=== PATIENT | female | born 1975 | race Two or more races ===

== ENCOUNTER 2021-11-24 12:00 | Outpatient (CLI) | payer OTHER | END 2021-11-24 12:05 | disposition home or self-care (01) | LOC: PPH VACUNA 12:00 | PROVIDERS: ATTEND Emergency Medicine Pediatric Emergency Medicine | DX: Z23 Encounter for immunization (principal) ==

== ENCOUNTER 2022-02-21 06:30 | Emergency (ER) | payer OTHER ==
[~2022-02-21] VITALS: Ht 154.9 cm; Wt 57.2 kg
== END 2022-02-21 11:11 | disposition home or self-care (01) ==
LOC: ER 06:30
DX: S70.01XA Contusion of right hip, initial encounter (principal); S40.012A Contusion of left shoulder, initial encounter; W18.30XA Fall on same level, unspecified, initial encounter; Y93.9 Activity, unspecified; Y92.9 Unspecified place or not applicable; Y99.9 Unspecified external cause status

== ENCOUNTER 2022-09-27 12:38 | Outpatient (CLI) | payer OTHER | END 2022-09-27 12:39 | disposition home or self-care (01) | LOC: LAB 12:38 | DX: Z02.1 Encounter for pre-employment examination (principal) ==

== ENCOUNTER 2022-10-27 16:17 | Outpatient (CLI) | payer OTHER | END 2022-10-27 16:21 | disposition home or self-care (01) | LOC: LAB 16:17 | DX: U07.1 COVID-19 (principal) ==

== ENCOUNTER 2022-10-28 23:55 | Emergency (ER) | payer OTHER ==
[~2022-10-28] VITALS: Ht 154.9 cm; Wt 57.6 kg
[2022-10-29] MEDS ORDERED: MOLNUPIRAVIR (200 MG PO (04:15)
[2022-10-29] MEDS ORDERED: MUCINEX DM ER1 EAC1 PO (04:15)
[2022-10-29] MEDS ORDERED: PROAIR RESPICL90 MCG IH (04:15)
[2022-10-29] MEDS ORDERED: ACETAMINOPHEN500 M2 PO (04:15)
[2022-10-29] MEDS ORDERED: FLONASE16 GM NASAL (04:15)
== END 2022-10-29 04:33 | disposition home or self-care (01) ==
LOC: ER 23:55
DX: U07.1 COVID-19 (principal); J06.9 Acute upper respiratory infection, unspecified

== ENCOUNTER 2022-12-02 01:50 | Outpatient (CLI) | payer OTHER ==
[~2022-12-02 01:50] MED LIST: ACETAMINOPHEN500 M2 PO; FLONASE16 GM NASAL; MOLNUPIRAVIR (200 MG PO; MUCINEX DM ER1 EAC1 PO; PROAIR RESPICL90 MCG IH
== END 2022-12-02 02:00 | disposition home or self-care (01) ==
LOC: PPH VACUNA 01:50
PROVIDERS: ATTEND Emergency Medicine Pediatric Emergency Medicine
DX: Z23 Encounter for immunization (principal)
CPT/HCPCS: 90686; G0008

== ENCOUNTER → 2022-12-31 07:43 | Outpatient (CLI) | payer OTHER ==
[2022-12-31 09:13] LABS: PH,URINE 7.5 (5.0-8.0); URINE APPEARANCE Clear; URINE BILIRRUBIN Negative (NEGATIVE); URINE BLOOD Negative; URINE COLOR Yellow; URINE GLUCOSE Negative (NEGATIVE); URINE LEUKOCYTE Negative; URINE NITRATE Negative; URINE PROTEIN Negative (NEGATIVE); URINE UROBILINOGEN 0.2 E.U./dl
[2022-12-31 09:17] LABS: URINE BACTERIA 249.3 uL (0.0-1933); URINE EPITHELIAL CELLS 12.1 uL (0.0-38.8); URINE RBC 30.1 uL (0.0-20.8); URINE WBC 2.4 uL (0.0-23.2)
[2022-12-31 09:41] LABS: ALBUMIN 3.5 gm/dL (3.4-5.0); BILIRUBIN TOTAL 0.37 mg/dL (0.3-1.2); CALCIUM 8.7 mg/dL (8.5-10.1); CHOL HDL RATIO 3.9 (0-5.0); CREATININE SERUM 0.59 mg/dL (0.55-1.02); GFR 108.79; GLOBULINA 3.6 G/DL (2.4-3.5); POTASSIUM 3.78 mEq/L (3.5-5.1); T4 FREE 0.94 NG/ML (0.76-1.46); TOTAL PROTEIN 7.1 gm/dL (6.4-8.2); TSH 1.86 uIU/mL (0.358-3.74)
[2022-12-31 09:56] LABS: HEMATOCRIT 36.8 % (36.0-45.00); MEAN CELL VOLUME 85.1 fL (80.00-100.00); MEAN CORPUSCULAR HEMOGLOBIN 27.7 pg (27.00-32.0); MEAN CORPUSCULAR HGB CONC 32.6 g/dl (32.0-36.0); PLATELET COUNT 226 K/uL (150-450); RED BLOOD COUNT 4.33 M/uL (4.00-6.00); RED CELL DISTRIBUTION WIDTH 14.1 % (11.5-14.5)
== END | disposition home or self-care (01) ==
LOC: LAB 07:43
PROVIDERS: ATTEND Internal Medicine
DX: E79.9 Disorder of purine and pyrimidine metabolism, unspecified (principal); E55.9 Vitamin D deficiency, unspecified; I10 Essential (primary) hypertension; R00.2 Palpitations

== ENCOUNTER 2024-03-08 10:30 | Inpatient (IN) | payer OTHER ==
[~2024-03-08] VITALS: Ht 33 cm; Wt 54.4 kg
[2024-03-20 09:15] VITALS: BP 110/72
[2024-03-20] MEDS ORDERED: INDERAL XL80 MG (09:24)
[2024-03-25] MEDS ORDERED: CEFAZOLIN SODIUM 1,000 MG VIAL ONE (12:43)
[2024-03-25] MEDS ORDERED: HEMOSTATIC MATRIX 1 KIT KIT TOP ONE (14:42)
[2024-03-25] MEDS ORDERED: MORPHINE SULFATE 4 MG/ML VIAL IV ONE ×2 (15:50→16:20)
[2024-03-25] MEDS ORDERED: MEPERIDINE HCL/PF 50 MG/ML VIAL IV SCH (16:00)
[2024-03-25] MEDS ORDERED: PROMETHAZINE HCL 25 MG/ML AMPUL IV SCH (16:00)
[2024-03-25] MEDS ORDERED: MEPERIDINE HCL 50 MG/ML AMPUL IV ONE (17:55)
[2024-03-25 18:50] VITALS: BP 100/65
[2024-03-26 01:00] VITALS: BP 116/78
[2024-03-26] MEDS ORDERED: IBUprofen 800 MG TABLET PO SCH (02:00)
[2024-03-26 03:31] LABS: HEMATOCRIT 32.8 % (36.0-45.00); HEMOGLOBIN 11.1 g/dL (12.0-15.00); MEAN CELL VOLUME 88.3 fL (80.00-100.00); PLATELET COUNT 228 K/uL (150-450); RED BLOOD COUNT 3.71 M/uL (4.00-6.00); RED CELL DISTRIBUTION WIDTH 16.4 % (11.5-14.5)
[2024-03-26] MEDS ORDERED: POLYETHYLENE GLYCOL 3350 17 GM BLIST.PACK PO SCH (05:00)
[2024-03-26] MEDS ORDERED: GABAPENTIN 300 MG CAPSULE PO SCH (05:00)
[2024-03-26] MEDS ORDERED: SIMETHICONE 125 MG CAPSULE PO SCH (05:00)
[2024-03-26 08:10] VITALS: BP 106/71
[2024-03-26 16:34] VITALS: BP 127/76
[2024-03-26 20:48] VITALS: BP 108/72
[2024-03-27 00:13] VITALS: BP 114/76
[2024-03-27] MEDS ORDERED: GABAPENTIN300 MG PO (06:55)
[2024-03-27] MEDS ORDERED: SIMETHICONE125 M1 PO (06:56)
[2024-03-27] MEDS ORDERED: IBUPROFEN800 MG PO (06:56)
[2024-03-27] MEDS ORDERED: POLY119PG PO (06:56)
[2024-03-27 08:01] VITALS: BP 104/72
== END 2024-03-27 10:23 | disposition home or self-care (01) | DRG 743 ==
LOC: O/R 03-25 05:20 → OB/GYN 03-25 05:20 → SURH 03-25 07:00 → OB/GYN 03-25 15:54
PROVIDERS: ADMIT Obstetrics & Gynecology; ATTEND Obstetrics & Gynecology
PROC: 0UT70ZZ Resection of Bilateral Fallopian Tubes, Open Approach (ICD-10-PCS; 2024-03-25)
PROC: 0UT20ZZ Resection of Bilateral Ovaries, Open Approach (ICD-10-PCS; 2024-03-25)
PROC: 0DNW0ZZ Release Peritoneum, Open Approach (ICD-10-PCS; 2024-03-25)
PROC: 0UN20ZZ Release Bilateral Ovaries, Open Approach (ICD-10-PCS; 2024-03-25)
PROC: 0UNF0ZZ Release Cul-de-sac, Open Approach (ICD-10-PCS; 2024-03-25)
PROC: 0DNE0ZZ Release Large Intestine, Open Approach (ICD-10-PCS; 2024-03-25)
PROC: 0UN90ZZ Release Uterus, Open Approach (ICD-10-PCS; 2024-03-25)
PROC: 0UT90ZZ Resection of Uterus, Open Approach (ICD-10-PCS; principal; 2024-03-25 07:00)
DX: D25.1 Intramural leiomyoma of uterus (principal); N80.03 Adenomyosis of the uterus; R10.2 Pelvic and perineal pain; R19.00 Intra-abdominal and pelvic swelling, mass and lump, unspecified site; N83.12 Corpus luteum cyst of left ovary

== ENCOUNTER 2024-04-26 11:27 | Emergency (ER) | payer OTHER ==
[~2024-04-26] VITALS: Ht 154.9 cm; Wt 54.4 kg
[~2024-04-26 11:27] MED LIST changes: +GABAPENTIN300 MG PO; +IBUPROFEN800 MG PO; +INDERAL XL80 MG; +POLY119PG PO; +SIMETHICONE125 M1 PO
[2024-04-26 14:32] LABS: HEMATOCRIT 36.4 % (36.0-45.00); HEMOGLOBIN 12.9 g/dL (12.0-15.00); MEAN CELL VOLUME 85.1 fL (80.00-100.00); MEAN CORPUSCULAR HEMOGLOBIN 30.2 pg (27.00-32.0); MEAN CORPUSCULAR HGB CONC 35.5 g/dl (32.0-36.0); PLATELET COUNT 305 K/uL (150-450); RED BLOOD COUNT 4.28 M/uL (4.00-6.00); RED CELL DISTRIBUTION WIDTH 14.1 % (11.5-14.5)
[2024-04-26 14:43] LABS: PH,URINE 5.5 (5.0-8.0); URINE APPEARANCE Cloudy; URINE BILIRRUBIN Negative (NEGATIVE); URINE BLOOD Small; URINE COLOR Yellow; URINE GLUCOSE Negative (NEGATIVE); URINE KETONE Negative (NEGATIVE); URINE LEUKOCYTE Small; URINE NITRATE Negative; URINE PROTEIN Negative (NEGATIVE); URINE UROBILINOGEN 0.2 E.U./dl
[2024-04-26 14:44] LABS: URINE BACTERIA 3619.1 uL (0.0-1933); URINE RBC 29.1 uL (0.0-20.8); URINE WBC 105.1 uL (0.0-23.2)
[2024-04-26 15:05] LABS: CREATININE SERUM 0.93 mg/dL (0.55-1.02); GFR 64.08; POTASSIUM 3.86 mEq/L (3.5-5.1)
[2024-04-26 15:26] LABS: URINE CAST 0.88 uL (0.0-1.40)
== END 2024-04-26 16:21 | disposition home or self-care (01) ==
LOC: ER 11:30
PROVIDERS: General Practice
DX: R53.81 Other malaise (principal); N39.0 Urinary tract infection, site not specified